=== PATIENT | female | born 1970 | race Hispanic/Latino ===

== ENCOUNTER → 2016-12-08 | Outpatient (CLI) | payer OTHER ==
--- NOTE | 2016-12-08 11:05 | REP ---
MAXILLOFACIAL CT WITHOUT CONTRAST: HISTORY: Chronic sinusitis. The sinuses are clear. The osteomeatal units are patent. The middle and inferior nasal turbinates are partially paradoxical. There is minimal deviation of the nasal septum to the right. The cribriform plate, medial desai of the orbits and optic canals are intact. The carotid canals form a segment of the posterolateral desai of the sphenoid sinus. IMPRESSION: There is no acute or chronic sinusitis. Signed by Fredis Bowling MD 12/08/2016 11:16 A
== END ==
LOC: M RAD 10:18
PROVIDERS: ATTEND Otolaryngology
DX: J32.4 Chronic pansinusitis (principal)

== ENCOUNTER → 2017-07-07 | Outpatient (CLI) | payer OTHER ==
--- NOTE | 2017-07-07 14:41 | REPMRS ---
Patient History The patient states she had a clinical breast exam in January 2017.Family history of unknown cancer in maternal grandmother at age 50 or over, unknown cancer in paternal cousin under age 50, and unknown cancer in paternal uncle at age 50 or over.Patient has had a 10 pound weight gain. Digital Mammo Screening Bilat: July 07, 2017 - Exam #: [id number] Bilateral CC and MLO view(s) were taken. Technologist: Josie Aguilar, Technologist Prior study comparison: June 30, 2016, bilateral digital mammo screening bilat performed at [facility]. May 28, 2015, bilateral digital mammo screening bilat performed at [facility]. FINDINGS: There are scattered fibroglandular densities. There has been no change in the appearance of the mammogram from the prior studies. There is a mild amount of residual fibroglandular tissue which is fairly symmetric. There is no interval development of dominant mass, architectural distortion, or clustered microcalcification suggestive of malignancy. ASSESSMENT: BI-RADS/ACR category 1 mammogram. Negative. Recommendation Routine screening mammogram in 1 year (for women over age 40). This mammogram was interpreted with the aid of an FDA-approved computer-aided dectection system. Electronically Signed By: Jeffery Smart MD 07/07/17 [id number]
== END ==
LOC: M RAD 12:50
PROVIDERS: ATTEND Physician Assistant Medical
DX: Z12.31 Encounter for screening mammogram for malignant neoplasm of breast (principal)